=== PATIENT | male | born 1990 ===

== ENCOUNTER 2016-11-03 21:57 | Emergency (ER) | payer OTHER ==
[2016-11-04] MEDS ORDERED: ZANTAC150 M1 PO (00:18)
[2016-11-04] MEDS ORDERED: NORCO 5/3251 TAB PO (01:29)
== END 2016-11-04 01:32 ==
LOC: EDMED 21:57
DX: S93.402A Sprain of unspecified ligament of left ankle, initial encounter (principal); K21.9 Gastro-esophageal reflux disease without esophagitis; X50.1XXA Overexertion from prolonged static or awkward postures, initial encounter